=== PATIENT | female | born 1970 | race Caucasian/White ===

== ENCOUNTER → 2017-02-10 09:56 | Emergency (ER) | payer OTHER ==
[~2017-02-10 09:56] MED LIST: AMOXIL PO; BACLOFEN10 MG PO; BACTRIM DS TABL1 TA1 PO; BACTRIM DS TABL1 TAB PO; CIPRO PO; DARVOCET-N 1001 TAB PO; FIORICET 50-321 EACH PO; FLEXERIL PO; MEDROL4 MG/DOSE- PO; NO MEDICATIONS; PEN-VEE K PO; PHENERGAN PO; PYRIDIUM PO; SEPTRA DS PO; TYLENOL #3 PO; ULTRAM PO; VICODIN 5/1 TAB 5/50 PO; VICODIN 5/500 T1 TAB PO; VICODIN PO; VOLTAREN75 MG PO
== END | disposition home or self-care (01) ==
LOC: CFTX 09:56
DX: J06.9 Acute upper respiratory infection, unspecified (principal); Z88.5 Allergy status to narcotic agent; Z88.1 Allergy status to other antibiotic agents; Z88.6 Allergy status to analgesic agent; Z88.8 Allergy status to other drugs, medicaments and biological substances
CPT/HCPCS: 99282